=== PATIENT | female | born 1940 | race Caucasian/White ===

== ENCOUNTER 2016-11-27 15:20 | Emergency (ER) | payer OTHER ==
--- NOTE | ~2016-11-27 | EKG ---
PATIENT: VIKRAM KENDRICK UNIT #: [id number] Ventricular Rate: 69 BPM Atrial Rate: 69 BPM P-R Interval: 206 ms QRS Duration: 136 ms Q-T Interval: 484 ms QTC Calculation(Bezet): 518 ms P Graford: 81 degrees Calculated R Graford: -33 degrees Calculated T Graford: 22 degrees Diagnosis Line: Normal sinus rhythm Diagnosis Line: Left axis deviation Diagnosis Line: Right bundle branch block Diagnosis Line: Abnormal ECG Diagnosis Line: When compared with ECG of 17-JUL-2016 19:21, Diagnosis Line: No significant change was found Diagnosis Line: Confirmed by RICKIE BERGERON MD ([id number]) on 11/28/2016 Diagnosis Line: 7:27:42 PM INTERPRETING MD: ELYSSA FERNANDEZ
--- NOTE | ~2016-11-27 | CR133 ---
[facility] A Service of [facility] RADIOLOGY TEXT RESULTS PATIENT: VIKRAM KENDRICK LOCATION: [place] : 39 UNIT #: [id number] AGE: [address]: Ady Hoskins MD SEX: F ORDER DR: [id number] [facility] [address] [place], [place] [address] [id number] E MR#: [id number] Acc #: [id number] NAME: VIKRAM KENDRICK : 1940 SEX: F STUDY DATE/TIME: 11/27/2016 14:48 UNIT: [place] ROOM: STUDY DESCRIPTION: CR Forearm 2 View Rt Attending Physician: Ady Hoskins M.D. Ordering Physician: Ady Hoskins M.D. Primary Care Physician: Luca Luna M.D. MEDICAL IMAGING REPORT This report is preliminary unless electronic signature is present EXAM Right forearm series. DATE OF EXAM 11/27/2016 HISTORY Pain. Fell today. FINDINGS AP, and lateral views of the right forearm are presented. Diminished bony mineralization. No traumatic fracture or malalignment. Elbow and wrist joints appear normally located in their visualized extent. Afyixmgv-ne-pwodxv degenerative change at the basal joint of the thumb. Prominent soft tissue swelling with subcutaneous fat stranding and haziness along the distal two-thirds of the forearm more pronounced along its anterior and ulnar aspects. Appearance suggests large contusion or subcutaneous hematoma. This extends over a longitudinal distance of about 17 cm with soft tissue swelling along the anterior aspect of the wrist and probably extending into the anterior hand as well. On the lateral view, there is a suggestion of cutaneous irregularity at the junction of middle and distal thirds of the forearm extending over a distance of about 2 cm and concerning for cutaneous laceration. Please correlate with clinical examination. There is some overlying bandage material. The proposed laceration could be an artifact related to banding material. No subcutaneous radiodense foreign body is suggested. Dictated by... [facility] A Service of [facility] RADIOLOGY TEXT RESULTS PATIENT: VIKRAM KENDRICK LOCATION: [place] : 39 UNIT #: [id number] AGE: [address]: Ady Hoskins MD SEX: F ORDER DR: Saleem Boyd M.D. THIS IS AN ELECTRONICALLY VERIFIED REPORT Saleem Boyd M.D. at 11/28/2016 7:55 AM Bernard TD: 11/27/2016 16:39 JOB #: [id number] MEDICAL IMAGING REPORT COPY
--- NOTE | ~2016-11-27 | CR282 ---
[facility] A Service of [facility] RADIOLOGY TEXT RESULTS PATIENT: VIKRAM KENDRICK LOCATION: [facility] : 39 UNIT #: [id number] AGE: [address]: Ady Hoskins MD SEX: F ORDER DR: [id number] [facility] [address] [place], [place] [address] [id number] E MR#: [id number] Acc #: [id number] NAME: VIKRAM KENDRICK : 1940 SEX: F STUDY DATE/TIME: 11/27/2016 14:50 UNIT: [facility] ROOM: STUDY DESCRIPTION: CR Wrist Min 3 View Rt Attending Physician: Ady Hoskins M.D. Ordering Physician: Ady Hoskins M.D. Primary Care Physician: Luca Luna M.D. MEDICAL IMAGING REPORT This report is preliminary unless electronic signature is present EXAM Right wrist, 11/27 HISTORY Wrist pain after fall today. FINDINGS 3 views of the right wrist were obtained. Patient is osteopenic. There is severe degenerative disease at the first carpometacarpal joint. No acute fractures are identified. Soft tissue injury suspected in the distal forearm. Correlate clinically. IMPRESSION Soft tissue injury in the distal forearm. No acute fracture in the wrist. Dictated by... Neeraj Myers Jr., M.D. THIS IS AN ELECTRONICALLY VERIFIED REPORT Neeraj Myers Jr., M.D. at 11/28/2016 8:11 AM JIN/michael TD: 11/27/2016 16:20 JOB #: [id number] MEDICAL IMAGING REPORT COPY
[2016-11-27 14:29] LABS: BASOPHIL% 0.4 % (0-2.5); DIFF IND NO; EOSINOPHIL% 0.8 % (0.0-7.0); HEMATOCRIT 31.8 % (35.0-45.0); HEMOGLOBIN 10.3 gm/dL (12.0-16.0); LYMPHOCYTE# 0.6 X10e3 (1.0-3.5); LYMPHOCYTE% 9.2 % (17.0-45.0); MEAN CELL VOLUME 90.8 FL (83-96); MEAN CORPUSCULAR HEMOGLOBIN 29.5 PG (28-34); MEAN CORPUSCULAR HGB CONC 32.5 g/dL (30-36); MEAN PLATELET VOLUME 9.1 FL (6.5-11.5); MONOCYTE# 0.5 X10e3 (0-1.0); MONOCYTE% 7.5 % (3.0-12.0); NEUTROPHIL# 5.3 X10e3 (1.5-7.1); NEUTROPHIL% 82.1 % (40-75); PLATELET COUNT 194 X10e3 (140-420); RED CELL DISTRIBUTION WIDTH 15.7 % (11.0-15.5); WHITE BLOOD COUNT 6.5 X10e3 (4.0-10.5)
[2016-11-27 14:54] LABS: INR 0.9; PARTIAL THROMBOPLASTIN TIME 27.5 SECONDS (23.5-31.3); PROTHROMBIN TIME (PATIENT) 9.7 SECONDS (9.6-11.5)
[2016-11-27 15:06] LABS: ALBUMIN SERUM 3.5 g/dL (3.5-5.0); BILIRUBIN, DIRECT 0.1 mg/dL (0.0-0.2); BILIRUBIN,INDIRECT 0.3 mg/dL (0.0-0.9); BILIRUBIN,TOTAL 0.4 mg/dL (0.2-2.0); BUN/CREATININE RATIO 16.15; CALCIUM SERUM 8.3 mg/dL (8.4-10.2); CREATININE SERUM 1.3 mg/dL (0.6-1.4); GLOM FILT RATE Estimated 42.2 mL/min (>60); POTASSIUM 3.9 mmol/L (3.5-5.1); PROTEIN TOTAL SERUM 7.1 g/dL (6.0-8.3)
[~2016-11-27 15:20] MED LIST: ACETAMINOPHEN PO; ADVIL200 M1 PO; AMIODARONE HCL100 MG PO; AMLODIPINE BESY10 MG PO; ANUSOL-HC SUPP25 MG PR; ANUSOL-HC25 MG/SUPP RC; APAP325 M2 PO; ASPIRIN EC81 M1 PO; ASPIRIN ENTERI325 M1 PO; ASPIRIN81 M2 PO; ASPIRIN81 MG PO; ATRAC-TAIN142 GM EXT; ATRAC-TAIN142 GM TP; BAYER ASPIRIN325 M1 PO; BRILINTA90 MG PO; CARAFATE PO; CARAFATE1 G PO; CARAFATE1 GM PO; CARDENE30 MG PO; CATAPRES-TTS-10.1 M1 PO; CATAPRES0.1 MG PO; CLOBETASOL 0.0560 GM; CLOBETASOL 0.0560 GM TOP; CLOBETASOL TOP; CLONIDINE HCL0.1 MG PO; CLONIDINE PO; CLOTRIMAZOLE/BE15 GM; CLOTRIMAZOLE/BE45 GM TOP; DOCUSATE SODIU100 MG PO; FERROUS GLUCON324 MG PO; FERROUS SULFATE PO; FLAGYL PO; FLEXERIL PO; HCTZ PO; HYDRALAZINE HC100 MG PO; HYDRALAZINE HCL25 MG PO; HYDRALAZINE HCL50 MG PO; HYDROCODON-ACE1 EAC5 PO; HYDROCODON-ACE1 EAC7 PO; HYDROCODONE-A1 UDTA3 PO; HYDROCODONE-APA1 T56 PO; IMDUR-ER30 M1 PO; IRON PO; IRON TABLET1 EACH PO; IRON325 ( 652 PO; K-DUR20 ME1 PO; LAXATIVE5 M1; LEVAQUIN PO; LEVAQUIN750 M1 PO; LIPITOR20 MG PO; LISINOPRIL PO; LO-DOSE ASPIRIN81 M1 PO; LOPRESSOR PO; LOPRESSOR100 MG PO; LORTAB 7.5-3251 EACH PO; LOVENOX30 MG/0.3 INJ; MAXZIDE 75/50 T1 TA1; MAXZIDE 75/50 T1 TA1 PO; MAXZIDE 75/50 T1 TAB PO; METOPROLOL SUC100 MG PO; METOPROLOL SUC200 MG PO; METOPROLOL TAR100 MG PO; METOPROLOL TART25 MG PO; MIRALAX17 GM PO; MULTI VITAMIN1 EACH PO; MULTI-VITAMIN1 EAC1 PO; MULTI-VITAMIN1 TAB PO; MULTIPLE VITAMI1 T11 PO; MUPIROCIN TOP; NEXIUM PO; NITROGLYGERIN0.4 MG SL; NORCO 10-325 TA1 TAB PO; NORCO 5/325 TAB1 TAB PO; NORVASC PO; NORVASC10 MG PO; PANTOPRAZOLE SO40 MG PO; PHARMACY; PROTONIX; PROTONIX PO; SANTYL15 G1 TOP; SKELAXIN PO; SUCRALFATE1 G/10 ML PO; THERA M PLUS1 UDTA1 PO; THERAGRAN-M 1,21 CAP PO; THERAGRAN-M AD1 EACH PO; THERAGRAN1 TAB PO; TOPROL XL PO; TYLENOL325 M1 PO; TYLOX 5/500 CAP1 CAP PO; VICODIN 5/1 TAB 5/50 PO; VICODIN 5/500 T1 TAB PO; VICODIN PO
== END 2016-11-27 16:50 | disposition home or self-care (01) ==
LOC: CED 15:20
PROVIDERS: Emergency Medicine
DX: S51.811A Laceration without foreign body of right forearm, initial encounter (principal); N18.9 Chronic kidney disease, unspecified; D63.1 Anemia in chronic kidney disease; W01.0XXA Fall on same level from slipping, tripping and stumbling without subsequent striking against object, initial encounter; Y92.009 Unspecified place in unspecified non-institutional (private) residence as the place of occurrence of the external cause
CPT/HCPCS: 29260; 36415; 73090; 73110; 80048; 80076; 85025; 85610; 85730; 93005; 99284

== ENCOUNTER 2016-12-08 14:52 | Emergency (ER) | payer OTHER ==
--- NOTE | ~2016-12-08 | EKG ---
PATIENT: VIKRAM KENDRICK UNIT #: [id number] Ventricular Rate: 74 BPM Atrial Rate: 74 BPM P-R Interval: 190 ms QRS Duration: 142 ms Q-T Interval: 454 ms QTC Calculation(Bezet): 503 ms P Formoso: 34 degrees Calculated R Formoso: -27 degrees Calculated T Formoso: -46 degrees Diagnosis Line: Sinus rhythm with occasional Premature ventricular Diagnosis Line: complexes Diagnosis Line: Right bundle branch block Diagnosis Line: T wave abnormality, consider lateral ischemia Diagnosis Line: Abnormal ECG Diagnosis Line: When compared with ECG of 27-NOV-2016 14:13, Diagnosis Line: Premature ventricular complexes are now Present Diagnosis Line: T wave inversion now evident in Inferior leads Diagnosis Line: Confirmed by LAMONT MARI MD ([id number]) on Diagnosis Line: 12/10/2016 12:04:30 AM INTERPRETING MD: JACEY FERNANDEZ
--- NOTE | ~2016-12-08 | CT4 ---
[facility] A Service of [facility] RADIOLOGY TEXT RESULTS PATIENT: VIKRAM KENDRICK LOCATION: [facility] : 39 UNIT #: [id number] AGE: [address]: Phil Peralta DO SEX: F ORDER DR: [id number] [facility] [address] [place], [place] [address] [id number] E MR#: [id number] Acc #: [id number] NAME: VIKRAM KENDRICK : 1940 SEX: F STUDY DATE/TIME: 12/08/2016 15:45 UNIT: [facility] ROOM: STUDY DESCRIPTION: CT Abd and Pelv Wo Cont Attending Physician: Phil Peralta D.O. Ordering Physician: Phil Peralta D.O. Primary Care Physician: Luca Luna M.D. MEDICAL IMAGING REPORT This report is preliminary unless electronic signature is present EXAM CT abdomen and pelvis without contrast. INDICATIONS Generalized abdominal and periumbilical pain today. PROCEDURE Unenhanced CT of the abdomen and pelvis. This CT exam was performed with one or more of the following radiation dose reduction techniques: automatic exposure control, adjustment of mA and/or kV according to patient size, and iterative reconstruction. COMPARISON 07/26/2016. FINDINGS Abdomen without contrast: Small amount of atelectasis in the left lung base around the patient's hiatal hernia. Cardiomegaly. There is a large hiatal hernia. Elevated right hemidiaphragm. Liver, spleen, adrenal glands, pancreas and gallbladder unremarkable. PLAN 1. The bowel loops are nondilated. 2. Bilateral renal cysts, largest is exophytic from the upper pole of the left kidney and measures up to 3.57 cm. There are multiple nonobstructing calculi in the left kidney measuring up to 9 mm. A 1.3 cm high-attenuation lesion in the anterior left kidney is stable and most in keeping with a benign proteinaceous or hemorrhagic cyst. No radiodense ureteral calculus or hydronephrosis when allowing for [facility] A Service of [facility] RADIOLOGY TEXT RESULTS PATIENT: VIKRAM KENDRICK LOCATION: [facility] : 39 UNIT #: [id number] AGE: [address]: Phil Peralta DO SEX: F ORDER DR: streak artifact from the patient's left hip prosthesis. 3. Pelvis without contrast. No radiodense bladder calculus. No pelvic mass. No aggressive appearing bone lesion. 4. No clearly acute finding in the abdomen or pelvis. 5. Multiple incidental findings as detailed above and include large hiatal hernia, cardiomegaly, nonobstructing calculi in the left kidney and bilateral renal cysts. Dictated by... Lg Walker M.D. THIS IS AN ELECTRONICALLY VERIFIED REPORT Lg Walker M.D. at 12/11/2016 7:01 AM JOYCE/javier TD: 12/09/2016 07:55 JOB #: [id number] MEDICAL IMAGING REPORT COPY
[2016-12-08 14:22] LABS: POC - CKMB 2.2 ng/mL (0.0-7.9); POC - TROPONIN <0.05 ng/mL (<=0.05)
[2016-12-08 14:42] LABS: BASOPHIL% 0.4 % (0-2.5); EOSINOPHIL% 0.4 % (0.0-7.0); HEMATOCRIT 29.5 % (35.0-45.0); HEMOGLOBIN 9.6 gm/dL (12.0-16.0); LYMPHOCYTE# 0.4 X10e3 (1.0-3.5); LYMPHOCYTE% 6.3 % (17.0-45.0); MEAN CELL VOLUME 90.7 FL (83-96); MEAN CORPUSCULAR HEMOGLOBIN 29.4 PG (28-34); MEAN CORPUSCULAR HGB CONC 32.4 g/dL (30-36); MEAN PLATELET VOLUME 9.5 FL (6.5-11.5); MONOCYTE# 0.5 X10e3 (0-1.0); MONOCYTE% 6.8 % (3.0-12.0); NEUTROPHIL# 5.9 X10e3 (1.5-7.1); NEUTROPHIL% 86.1 % (40-75); PLATELET COUNT 197 X10e3 (140-420); RED BLOOD COUNT 3.26 X10e (3.90-5.30); RED CELL DISTRIBUTION WIDTH 16.2 % (11.0-15.5); WHITE BLOOD COUNT 6.9 X10e3 (4.0-10.5)
[2016-12-08 14:53] LABS: DIFF IND NO
[2016-12-08 15:02] LABS: ALBUMIN SERUM 3.6 g/dL (3.5-5.0); BILIRUBIN, DIRECT 0.1 mg/dL (0.0-0.2); BILIRUBIN,INDIRECT 0.6 mg/dL (0.0-0.9); BILIRUBIN,TOTAL 0.7 mg/dL (0.2-2.0); CALCIUM SERUM 8.3 mg/dL (8.4-10.2); CREATININE SERUM 1.6 mg/dL (0.6-1.4); GLOM FILT RATE Estimated 33.2 mL/min (>60); POTASSIUM 4.1 mmol/L (3.5-5.1); PROTEIN TOTAL SERUM 7.2 g/dL (6.0-8.3)
[2016-12-08 15:06] LABS: INR 0.9; PARTIAL THROMBOPLASTIN TIME 28.5 SECONDS (23.5-31.3); PROTHROMBIN TIME (PATIENT) 9.8 SECONDS (9.6-11.5)
[2016-12-08 16:00] LABS: POC - CKMB 1.5 ng/mL (0.0-7.9); POC - TROPONIN <0.05 ng/mL (<=0.05)
== END 2016-12-08 20:00 | disposition home or self-care (01) ==
LOC: CED 14:52
PROVIDERS: Emergency Medicine
DX: I10 Essential (primary) hypertension (principal); I73.9 Peripheral vascular disease, unspecified; D64.9 Anemia, unspecified; Z98.890 Other specified postprocedural states; Z88.0 Allergy status to penicillin; Z88.8 Allergy status to other drugs, medicaments and biological substances; Z79.899 Other long term (current) drug therapy
CPT/HCPCS: 36415; 74176; 80048; 80076; 82553; 83690; 84484; 85025; 85610; 85730; 86850; 86900; 86901; 93005; 96361; 96372; 96374; 99284; C9113; J0500

== ENCOUNTER 2016-12-30 10:21 | Inpatient (IN) | payer OTHER ==
--- NOTE | ~2016-12-30 | DS ---
Unit #: [id number] #: [id number] Patient: VIKRAM KENDRICK [id number] [address] [place], [place] [address] [id number] I MR#: [id number] NAME: VIKRAM KENDRICK ROOM: 579 Age: 76 Sex: F Admission Date: 12/30/2016 : 1940 Discharge Date: 01/04/2017 Attending Physician: Azalia Espinoza M.D. Primary Care Physician: Luca Luna M.D. DISCHARGE SUMMARY PRINCIPAL DISCHARGE DIAGNOSES 1. Atypical chest pain with negative Cardiolite. 2. Acute on chronic anemia with stool for occult blood negative x1 while here. 3. Hypertension. 4. Sinus bradycardia. 5. Chronic kidney disease stage 3. 6. Right wrist hematoma. 7. Methicillin-resistant Staphylococcus aureus right lower extremity ulcer. 8. History of coronary artery disease. 9. Hiatal hernia. 10. Kyphoscoliosis. 11. Chronic venous insufficiency. 12. Status post left hip endoprosthesis. 13. Sick sinus syndrome. PROCEDURES None. CONSULTANTS 1. Dr. Gillette, Orthopedics. 2. Dr. Roldan, Hematology. 3. Dr. Poon, [facility]. 4. Dr. Worthington, Cardiology. REASON FOR HOSPITALIZATION The patient is a 76-year-old white female with a history of hypertension, coronary artery disease, hiatal hernia, chronic kidney disease stage 3, and chronic anemia, admitted through the emergency room with less than 24 hours of substernal chest pain worse with exertion, somewhat pleuritic, fairly constant. Cardiac enzymes and EKG showed no significant changes and were nondiagnostic, and the patient was admitted. HOSPITAL COURSE The patient was admitted. Again, her cardiac enzymes were normal x5 sets. CBC was normal except for a hemoglobin of 9.5. CMP was normal except for a potassium of 3.4, GFR of 54, alkaline phosphatase of 166, and albumin of 3.3. EKG showed sinus bradycardia, sinus arrhythmia, right bundle branch block, and no change. Thyroid functions were within normal limits. Chest x-ray showed no active disease, and again, the patient was admitted. Cardiology was consulted. Lexiscan Cardiolite was negative without any ST segment changes. There was no obvious ischemia on nuclear images. There Unit #: [id number] #: [id number] Patient: VIKRAM KENDRICK was preserved ejection fraction. Bilateral lower extremity venous Doppler showed a cyst in the left popliteal fossa. This was a sebaceous cyst, but there was no evidence of deep vein thrombosis. Hemoglobin drifted down. [facility] was consulted for possible endoscopy but declined. She had come in with an ulcer on her right lower extremity. Wound culture grew MRSA. She was originally placed on vancomycin, but there was no evidence that it was actively infected, and it was switched to Bactroban. Ferritin was low normal at 13. Iron was low. TIBC was normal. B12 and folic acid were normal. Stool for occult blood was negative and reticulocyte count 2.0%. Patient was noted to have some swelling on her right wrist. A two-view x-ray showed no fracture. Orthopedics was consulted. An MRI was performed, and it was consistent with a hematoma from a previous injury. Haptoglobin was 154 within normal limits. Epogen level was 90.4 which is actually elevated. Hematology was consulted for the anemia and recommended Procrit injections 40,000 units weekly subcutaneous. The first dose was given while here. Hemoglobin went up to 9.6. Patient is stable and is being discharged home. DISCHARGE MEDICATIONS 1. She is to resume her home medications which include Cordarone 100 mg p.o. daily, Norvasc 5 mg p.o. daily, Lipitor 20 mg p.o. at bedtime, clonidine 0.2 mg b.i.d., Carafate 1 gram twice daily, hydrocodone/APAP 5/325 at 1 t.i.d. p.r.n., Protonix 40 mg daily, and Imdur-ER 30 mg daily. 2. She has been given a prescription for Bactroban ointment to apply to the ulcer 3 times daily and a prescription for hydralazine 50 mg b.i.d. She was originally on Lopressor when she came in, but this was discontinued secondary to sinus bradycardia. 3. She is to go to Dr. Roldan's office weekly to get injections of Procrit 40,000 units subcutaneous on . FOLLOWUP With me in one week. DIET Regular diet as tolerated. Dictated by... Luca Luna M.D. Erica TD: 01/06/2017 18:15 JOB #: [id number] Unit #: [id number] #: [id number] Patient: VIKRAM KENDRICK DISCHARGE SUMMARY Page 1 of 1 X Luca Luna MD X DISCHARGE SUMMARY
--- NOTE | ~2016-12-30 | CO ---
Unit #: [id number] #: [id number] Patient: VIKRAM ZEPEDA [id number] [address] [place], [place] [address] [id number] I MR#: [id number] NAME: VIKRAM ZEPEDA ROOM: 579 Age: 76 Sex: F Admission Date: 12/30/2016 : 1940 Attending Physician: Azalia Espinoza M.D. Primary Care Physician: Luca Luna M.D. Requesting Physician: Neeraj Poon M.D. Consultation Date: 01/02/2017 CONSULTATION REPORT REASON FOR CONSULTATION Severe normocytic anemia. Please evaluate. HISTORY OF PRESENT ILLNESS Ms. Vikram Zepeda is 76 years old with a history of hypertension, coronary artery disease, stage 3 chronic kidney disease and chronic anemia admitted with substernal chest pain to the emergency room on 12/30/2016. Following admission, Surgical consultation was obtained because of severe anemia and the need for endoscopy. She has had multiple prior admissions and transfusions in the past with the most recent admission in January of 2016 when she required a multi-unit transfusion of packed cells. She has a functional gastric outlet obstruction with gastropexy and gastrostomy tube placement with at least 15 units of packed cells transfused from 2014. She tells me she has no ice craving or any other pica but feels constantly fatigued. PAST MEDICAL HISTORY History of coronary artery disease, hypertension, chronic kidney disease stage 3, kyphoscoliosis, chronic venous insufficiency. PAST SURGICAL HISTORY Laparoscopic gastropexy with gastrostomy, left hip endoprosthesis. SOCIAL HISTORY She is single, lives with herself. A neighbor takes her to doctors appointment. She has no living children or any other family members. FAMILY HISTORY Negative for anemia. REVIEW OF SYSTEMS A 14-point review of system taken. CONSTITUTIONAL: No recent change in appetite and weight. Chronic fatigue. EYES: Negative. EARS, NOSE, MOUTH AND THROAT: Negative. CARDIOVASCULAR: Chest pain on admission. GASTROINTESTINAL: Negative. GENITOURINARY: Negative. NEUROLOGIC: Negative. MUSCULOSKELETAL: Kyphoscoliosis. ENDOCRINE: Negative. ALLERGY/LYMPHATIC: Negative. SKIN: Breakdown in skin of right foot. She also fell several weeks ago Unit #: [id number] #: [id number] Patient: VIKRAM ZEPEDA and has a lump in her right forearm. PHYSICAL EXAMINATION GENERAL APPEARANCE: She is a pleasant, elderly woman lying in bed in no acute distress, awake, alert, oriented x3. VITAL SIGNS: Temperature 97.5. Pulse 51. Respiratory rate 18. Blood pressure 170/93. HEENT: Pupils are equal, reactive to light. She is pale but not icteric. Mucous membranes are moist. NECK: No adenopathy, JVD or thyromegaly. CARDIOVASCULAR: First and second heart sounds regular with no murmurs, gallops or rubs. LUNGS: Chest expansion symmetric bilaterally with normal breath sounds. ABDOMEN: Soft, nontender. Liver and spleen not palpable. EXTREMITIES: She has a palpable mass in the left forearm proximal to the wrist which appears to have the consistency of a ganglion, although not mobile. Skin of the right leg as well as ankle is red. Cultures have been drawn for MRSA. Foot pulses are felt. NEUROLOGIC: She is awake, alert, oriented x2 with no focal findings. PSYCHIATRIC: Normal affect. DIAGNOSTIC STUDIES LABORATORY: White count 4.7, hemoglobin 8.7, hematocrit 27.2, RDW 15.4, platelets 201. TSH 0.92. Basic metabolic panel shows a BUN of 26. Creatinine is 1.4 with an EGFR of 36.1. Ferritin 13, iron 20, TIBC 430 with a percent saturation of 5. Folic acid 19.6, B12 256. IMAGING: X-ray, right wrist two views, anterior aspect there is soft tissue swelling 5 cm x 2 cm. ASSESSMENT Vikram Zepeda is 76 years old with multiple complex medical problems including coronary artery disease, hypertension, chronic kidney stage 3 admitted with chest pain, which has now resolved. She is also chronically anemic with a history of gastropexy and functional gastric outlet obstruction. Iron studies consistent with iron deficiency likely with iron malabsorption given her previous gastric surgery. She also has significant chronic kidney disease noncontributory. RECOMMENDATIONS 1. Ferrlecit 250 mg IV daily for three days. 2. We will need to consider Procrit and other replacement therapy after replenishment of iron stores. 3. Orthopaedic consultation for her ganglion of right wrist. Thank you for allowing me to participate in care. Dictated by... Alan Roldan M.D. Abimbola TD: 01/02/2017 14:15 JOB #: [id number] Unit #: [id number] #: [id number] Patient: VIKRAM ZEPEDA CONSULTATION REPORT Page 1 of 1 X Alan Roldan MD CONSULTATION REPORT
--- NOTE | ~2016-12-30 | CO ---
Unit #: [id number] #: [id number] Patient: VIKRAM KENDRICK [id number] [facility] [address] [place], [place] [address] [id number] I MR#: [id number] NAME: VIKRAM KENDRICK ROOM: 579 Age: 76 Sex: F Admission Date: 12/30/2016 : 1940 Attending Physician: Azalia Espinoza M.D. Primary Care Physician: Luca Luna M.D. Consultation Date: 12/30/2016 CONSULTATION REPORT REASON FOR CONSULTATION Chest pain. HISTORY OF PRESENT ILLNESS The patient is a 76-year-old female, who does not regularly follow up in the rfid technician's office. She used to see [facility] and saw Dr. Alegre. However, last year, she was seen by us here at [facility] and had an abnormal stress test and underwent coronary angiography receiving a drug-eluting stent to the OM branch by Dr. Dillon. The patient was started on aspirin and Brilinta. She did have a GI bleed and this medication was stopped. All other coronary arteries were normal and she had normal LV function. The patient comes to the hospital today after waking up suddenly this morning with a pounding sensation in her chest. She states that it lasted for about an hour and then went away on its own. She was also short of breath. She has not had any exertional symptoms. No orthopnea. No lower extremity edema. PAST MEDICAL HISTORY Coronary artery disease, drug-eluting stent to the OM in 11/2015, all other coronaries were normal at that time, normal LV function; GI bleed; peptic ulcer disease; hiatal hernia, status post hernia repair; questionable history of sick sinus syndrome on last hospital admission in 01/2016. SOCIAL HISTORY The patient does not smoke. No alcohol or drug abuse. FAMILY HISTORY Noncontributory. DIAGNOSTIC STUDIES CARDIOVASCULAR STUDIES: EKG shows sinus katherine with a right bundle-branch block. LABORATORY RESULTS: White blood cell count 5.7, hemoglobin 9.5, hematocrit 30.2, and platelet count 211. Sodium 142, potassium 3.4, chloride 108, CO2 of 25, BUN 20, creatinine 1.0, and glucose 102. ALLERGIES Penicillin and sodium ferrous gluconate complex. Unit #: [id number] #: [id number] Patient: VIKRAM KENDRICK HOME MEDICATIONS I believer are as follows; aspirin 81 mg daily, amiodarone 100 mg b.i.d., Imdur ER 30 mg daily, Norvasc 5 mg daily, Lipitor 20 mg at bedtime, clonidine 0.2 mg b.i.d., Lortab 5/325 p.o. t.i.d. for pain. The patient does not know an accurate med list and this was used from a prior admission. REVIEW OF SYSTEMS Complains of heart pounding. No fever, chills, cough, nausea, vomiting, diarrhea, dizziness, lightheadedness, headache, or changes in visual field. Also some associated shortness of breath. No diaphoresis. All other review of systems is negative. PHYSICAL EXAMINATION GENERAL: The patient is awake and alert, in no apparent distress. Color is pink. SKIN: Warm and dry. VITAL SIGNS: Afebrile, heart rate 99, blood pressure 145/79. HEENT: Normal carotid upstrokes. No auscultated bruit. Negative JVD, lying supine. Negative hepatojugular reflux. CHEST: Respirations are regular, unlabored at rest. Bilateral breath sounds. Have no crackles, rubs, or wheezes. HEART: S1 and S2. Regular rate and rhythm. 2/6 systolic ejection murmur heard loudest at the left sternal border. No radiation. No rubs or gallops are heard. ABDOMEN: Soft, nontender, and nondistended. Positive bowel sounds in all 4 quadrants. No ascites noted. EXTREMITIES: Bilateral lower extremities have no pretibial pitting edema. DP/PT pulses are 2+. EXTREMITIES: Bilateral lower extremities have no pretibial pitting edema. MUSCULOSKELETAL: Moves all extremities without difficulty. NEUROLOGIC: No focal motor or sensory deficits. IMPRESSION 1. History of coronary artery disease with drug-eluting stent to the obtuse marginal in 11/2015. 2. Atypical chest pain. 3. Palpitations/heart pounding. 4. Systolic murmur most likely aortic stenosis. 5. Hypertension. 6. Prolonged QT interval on the EKG in 01/2016. PLAN We will hold amiodarone due to QT interval prolongation. We will check serial cardiac enzymes to rule out for DE. We will check a 2D echo to assess valvular heart disease. Her home blood pressure medicines have been restarted. We will start on low-dose beta-ijeoma in the setting of CAD and hypertension. If cardiac enzymes are negative, we will plan for Lexiscan Cardiolite in the morning. Dictated by... Catia Wray APRN for Augustin Tellez/cayden TD: 12/31/2016 08:00 JOB #: [id number] Unit #: [id number] #: [id number] Patient: VIKRAM KENDRICK CONSULTATION REPORT Page 1 of 1 X X CONSULTATION REPORT
--- NOTE | ~2016-12-30 | ST ---
Unit #: [id number] #: [id number] Patient: VIKRAM KENDRICK [id number] [address] [place] [facility] [address] [place], [place] [address] [id number] I MR#: [id number] NAME: VIKRAM KENDRICK : 1940 SEX: F STUDY DATE/TIME: 12/31/2016 UNIT: [facility] ROOM: 579 STUDY DESCRIPTION: Attending Physician: Azalia Espinoza M.D. Primary Care Physician: Luca Luna M.D. CARDIOLOGY REPORT EXAM EKG portion of Lexiscan Cardiolite. REASON FOR TEST Chest pain. FINDINGS Baseline EKG shows normal sinus rhythm, rate of 61 beats per minute, right bundle branch block, nonspecific ST-T wave abnormalities noted. PROCEDURE Next, 0.4 mg of Lexiscan was injected per protocol followed by Cardiolite. During the infusion, the patient complained of shortness of breath and nausea. However, denied any complaints of chest pain. There were no ST segment changes noted suggestive of ischemia. There was no ectopy. The test was stopped secondary to protocol completion. IMPRESSION 1. Negative EKG portion of Lexiscan Cardiolite. 2. No ST segment changes suggestive of ischemia. 3. Patient had shortness of breath and nausea during the infusion but no complaints of chest pain. Her symptoms resolved in the recovery period. 4. No arrhythmias. 5. Please correlate with nuclear imaging. Dictated by... Aimee Quick A.P.R.N. for Augustin Montero/denny TD: 12/31/2016 12:36 JOB #: [id number] Unit #: [id number] #: [id number] Patient: VIKRAM KENDRICK CARDIOLOGY REPORT Page 1 of 1 X Aimee Quick APRN CARDIOLOGY REPORT
--- NOTE | ~2016-12-30 | EKG ---
PATIENT: VIKRAM KENDRICK UNIT #: [id number] Ventricular Rate: 58 BPM Atrial Rate: 58 BPM P-R Interval: 208 ms QRS Duration: 150 ms Q-T Interval: 508 ms QTC Calculation(Bezet): 498 ms P Graham: 15 degrees Calculated R Graham: 8 degrees Calculated T Graham: 4 degrees Diagnosis Line: Sinus bradycardia Diagnosis Line: Right bundle branch block Diagnosis Line: Abnormal ECG Diagnosis Line: When compared with ECG of 30-DEC-2016 13:15, Diagnosis Line: Nonspecific T wave abnormality, worse in Anterior Diagnosis Line: leads Diagnosis Line: Confirmed by RICKIE BERGERON MD ([id number]) on 01/01/2017 Diagnosis Line: 11:10:44 PM INTERPRETING MD: ELYSSA FERNANDEZ
--- NOTE | ~2016-12-30 | CR72 ---
[facility] A Service of [facility] & [facility] RADIOLOGY TEXT RESULTS PATIENT: VIKRAM KENDRICK LOCATION: [facility] 579-01 : 39 UNIT #: [id number] AGE: [address]: Azalia Espinoza MD SEX: F ORDER DR: [id number] [facility] [address] [place], [place] [address] [id number] I MR#: [id number] Acc #: [id number] NAME: VIKRAM KENDRICK : 1940 SEX: F STUDY DATE/TIME: 12/30/2016 10:26 UNIT: [facility] ROOM: [id number] STUDY DESCRIPTION: CR Chest Single View Portable Attending Physician: Azalia Espinoza M.D. Ordering Physician: Cornelio Marcelo M.D. Primary Care Physician: Luca Luna M.D. MEDICAL IMAGING REPORT This report is preliminary unless electronic signature is present EXAM Single view chest. INDICATION Chest pain, shortness of air, and congestion for 1 day. TECHNIQUE Single, portable, AP view of the chest compared to 07/17/2016. FINDINGS The heart is enlarged. There is a hiatal hernia. No focal airspace opacity. No pleural effusions. IMPRESSION No interval change. Dictated by... Jacques Gabriel M.D. THIS IS AN ELECTRONICALLY VERIFIED REPORT Jacques Gabriel M.D. at 12/31/2016 2:11 PM JENNIFER/shraddha TD: 12/30/2016 18:18 JOB #: [id number] MEDICAL IMAGING REPORT Page 1 of 1 COPY
--- NOTE | ~2016-12-30 | CO ---
Unit #: [id number] #: [id number] Patient: VIKRAM KENDRICK [id number] [address] [place], [place] [address] [id number] I MR#: [id number] NAME: VIKRAM KENDRICK ROOM: 579 Age: 76 Sex: F Admission Date: 12/30/2016 : 1940 Attending Physician: Azalia Espinoza M.D. Primary Care Physician: Luca Luna M.D. Consultation Date: 01/02/2017 CONSULTATION REPORT CHIEF COMPLAINT Right forearm mass. HISTORY OF PRESENT ILLNESS This 76-year-old female is admitted for evaluation of chest pain. Consultation is requested for evaluation of volar right wrist mass. The patient states that she fell six weeks ago, sustaining a volar forearm laceration in her distal third of the forearm. She was seen in the emergency room where radiographs were normal. She was treated nonoperatively and then developed a 3 x 6 cm volar forearm mass, which is nontender. The patient denies any numbness or weakness in the right arm. This was thought to be a suspected ganglion. PAST MEDICAL HISTORY Remarkable for hypertension, coronary artery disease, hiatal hernia, chronic kidney disease stage 3, kyphoscoliosis, peptic ulcer disease, chronic venous insufficiency, chronic anemia, sick sinus syndrome. PAST SURGICAL HISTORY Laparoscopic gastropexy with gastrostomy and eventual removal of gastrostomy tubes, left hip endoprosthesis. HOME MEDICATIONS Amiodarone, Imdur ER, Norvasc, Lipitor, clonidine, Carafate, multivitamins, [place], Protonix, and Nitrostat. SOCIAL HISTORY The patient is a , nonsmoker and nondrinker who lives alone. FAMILY HISTORY Noncontributory. PHYSICAL EXAMINATION Examination of the right arm shows a 3 x 6 cm solid soft tissue mass located about 6 cm proximal to the wrist flexion crease. There is no motion of the mass with flexion and extension of the fingers. Pulses are intact. Sensation is normal. Patient exhibits normal volar wrist flexion strength and finger flexion strength. The mass is nonpulsatile. Past right forearm and x-rays are normal. IMPRESSION Right volar forearm mass six weeks following sharp trauma, suspect lacerated muscle with scarring, doubt ganglion. Unit #: [id number] #: [id number] Patient: VIKRAM KENDRICK PLAN 1. Right wrist and forearm MRI. 2. Will follow during this admission. Dictated byAugustin Woodward/ahmet TD: 01/03/2017 06:01 JOB #: [id number] CONSULTATION REPORT Page 1 of 1 X Stella Gillette MD X CONSULTATION REPORT
--- NOTE | ~2016-12-30 | US84 ---
[id number] [facility] [address] [place], [place] [address] [id number] I MR#: [id number] Acc #: [id number] NAME: VIKRAM KENDRICK : 1940 SEX: F STUDY DATE/TIME: 12/31/2016 12:48 UNIT: [facility] ROOM: 579 STUDY DESCRIPTION: US LE Veins Complete Dylan Stdy Attending Physician: Azalia Espinoza M.D. Ordering Physician: Luca Luna M.D. Primary Care Physician: Luca Luna M.D. MEDICAL IMAGING REPORT This report is preliminary unless electronic signature is present EXAM Bilateral lower extremity venous Doppler INDICATION Swelling at nighttime for 4 or 5 years. TECHNIQUE Gee-scale color Doppler and spectral Doppler waveform analysis was performed through the patient's lower extremities. FINDINGS The patient's common femoral, deep femoral, superficial femoral, popliteal, anterior tibial, posterior tibial, peroneal and saphenous veins are all patent and compressible. Patient is again noted to have a hypoechoic heterogeneous structure within the popliteal fossa. No internal color Doppler flow is seen within it. There may be some increased through transmission. It measures up to 2.0 x 1.2 x 1.9 cm. This was also present on the prior exam from May of 2015. Morphologically it does not appear significantly changed and it certainly could reflect a benign lesion such as a Adair's cyst. IMPRESSION. 1. No evidence of DVT within either lower extremity. 2. Hypoechoic structure which is seen within the popliteal fossa measuring up to 2.0 x 1.2 x 1.9 cm. This was also present on the prior study from May 2015. It does not appear significantly changed and is favored to be benign, such as a Adair's cyst or perhaps a sebaceous cyst given the appearance of a potential tail arising from it on the prior exam. Dictated by... Linda Lucia M.D. THIS IS AN ELECTRONICALLY VERIFIED REPORT Linda Lucia M.D. at 12/31/2016 4:34 PM AFF/cmthuy TD: 12/31/2016 14:55 JOB #: [id number] MEDICAL IMAGING REPORT Page 1 of 1 COPY
--- NOTE | ~2016-12-30 | EKG ---
PATIENT: VIKRAM KENDRICK UNIT #: [id number] Ventricular Rate: 74 BPM Atrial Rate: 74 BPM P-R Interval: 186 ms QRS Duration: 136 ms Q-T Interval: 462 ms QTC Calculation(Bezet): 512 ms P Smyer: 118 degrees Calculated R Smyer: -23 degrees Calculated T Smyer: -11 degrees Diagnosis Line: Normal sinus rhythm with sinus arrhythmia Diagnosis Line: Right bundle branch block Diagnosis Line: Abnormal ECG Diagnosis Line: When compared with ECG of 08-DEC-2016 19:10, Diagnosis Line: Premature ventricular complexes are no longer Diagnosis Line: Present Diagnosis Line: T wave inversion no longer evident in Diagnosis Line: Anterolateral leads Diagnosis Line: Confirmed by RICKIE BERGERON MD ([id number]) on 01/01/2017 Diagnosis Line: 10:57:03 PM INTERPRETING MD: ELYSSA FERNANDEZ
--- NOTE | ~2016-12-30 | CO ---
Unit #: [id number] #: [id number] Patient: VIKRAM ZEPEDA [id number] [address] [place], [place] [address] [id number] I MR#: [id number] NAME: VIKRAM ZEPEDA ROOM: 579 Age: 76 Sex: F Admission Date: 12/30/2016 : 1940 Attending Physician: Azalia Espinoza M.D. Primary Care Physician: Luca Luna M.D. Consultation Date: 01/01/2017 CONSULTATION REPORT HISTORY AND EXAM Ms. Zepeda is a 76-year-old female who has been seen frequently for a variety of abdominal issues as well as chronic recurrent anemia. She was admitted this time with chest pain and evaluated and it was felt not to be cardiac in origin. She describes the pain as constant and sharp, not associated with eating or heartburn even though she does have a history of reflux. It is worsened by movement and by direct pressure. She has not been having any trouble eating. A matter of fact the patient states she has been putting on weight and weighs the most she has ever weighed. She was noted to have some anemia. In the past she has had peptic ulcer disease and iron deficiency anemia. She is not currently taking iron and her last iron studies were in January of 2016 and at that time they were low. I cannot find a TSH or B12 and folate study. Stool today had no gross blood. She is tolerating a regular diet as she had just finished eating a hamburger and fries. Patient states she feels well, just has this chronic lower chest pain. HOME MEDICATIONS Her home medications include amiodarone, Imdur, Norvasc, Lipitor, clonidine, Carafate, multivitamins, [place], Protonix and Nitrostat. PAST MEDICAL HISTORY She has a history of: 1. Hypertension. 2. Atherosclerotic coronary artery disease. 3. Hiatal hernia. 4. Stage 3 chronic kidney disease. 5. Kyphoscoliosis. 6. Peptic ulcer disease. 7. Chronic venous insufficiency. 8. Previous left hip replacement. 9. Bilateral renal cysts. 10. Chronic anemia. 11. History of gastropexy for a chronic hiatal hernia and her G-tube has since been removed. 12. Sick sinus syndrome. ALLERGIES Penicillin, sucrose and Ferrlecit. FAMILY HISTORY She is unaware of any chronic or inheritable diseases. Unit #: [id number] #: [id number] Patient: VIKRAM ZEPEDA SOCIAL HISTORY She is a , nonsmoker, nondrinker, lives alone close to the hospital. REVIEW OF SYSTEMS Denies hematemesis, hematochezia, melena, lightheadedness, dizziness. She had significant weight gain according to her but there has been no weight loss, no dysphagia and no vomiting. PHYSICAL EXAMINATION VITAL SIGNS: On current examination temperature is 97, pulse 62, respirations 20, blood pressure is 167/81. GENERAL: She is awake, alert, oriented, in good spirits, in no acute distress. HEENT: Unremarkable. CARDIAC EXAM: Regular rhythm. LUNGS: Clear. ABDOMEN: Abdomen is soft and nontender. CHEST: On examination of her chest she has tenderness along the costochondral junction. It is reproducible and worsened by direct pressure. It simulates the pain she is complaining of. EXTREMITIES: No peripheral edema. NEUROLOGIC: Neurologically grossly intact. DIAGNOSTIC STUDIES LABORATORY: Basic metabolic panel today is normal. Magnesium is 2.2. On admission her liver chemistries were unremarkable. Hemoglobin is 8.2 with an MCV of 87, MCH 28, RDW 15.7, white count 4.1, platelets 200,000. IMAGING: CT scan done December 08 showed hiatal hernia but otherwise generally unremarkable. ASSESSMENT AND PLAN 1. Patient's persistent chest pain could be some degree of costochondritis because she has multiple sites of arthritis and this does not appear to be GI related. Cardiology has ruled out a cardiac etiology. She is eating well, having normal bowel movements and no gross evidence of blood loss. 2. Patient does have chronic anemia. Her hemoglobin has varied significantly between 8 and 11. A year ago she was noted to be iron deficient. She is not currently taking any iron supplementation and so I will repeat her iron studies as well as her B12 and folate. Because of the weight gain and anemia we will check a TSH to rule out hypothyroidism. Stool Hemoccults have been ordered. She does have a history of peptic ulcer disease. We will check her stool Hemoccults and labs and consider an EGD if there is any further indication. Her last colonoscopy was in 2016. Except for some internal hemorrhoids which were operated on was otherwise negative. If she persists with iron deficiency and anemia we may consider Hematology consult for bone marrow biopsy to look at iron stores and consideration of intravenous iron replacement. Dictated by... Unit #: [id number] #: [id number] Patient: VIKRAM ZEPEDA M.D. RS/gloria TD: 01/01/2017 19:27 JOB #: [id number] CONSULTATION REPORT Page 1 of 1 X Neeraj Poon MD X CONSULTATION REPORT
--- NOTE | ~2016-12-30 | EKG ---
PATIENT: VIKRAM KENDRICK UNIT #: [id number] Ventricular Rate: 59 BPM Atrial Rate: 59 BPM P-R Interval: 202 ms QRS Duration: 148 ms Q-T Interval: 522 ms QTC Calculation(Bezet): 516 ms P Og[place]: 78 degrees Calculated R [place]: -13 degrees Calculated T [place]: 1 degrees Diagnosis Line: Sinus bradycardia with sinus arrhythmia Diagnosis Line: Right bundle branch block with repolarization Diagnosis Line: abnormality Diagnosis Line: Abnormal ECG Diagnosis Line: When compared with ECG of 30-DEC-2016 09:36, Diagnosis Line: (unconfirmed) Diagnosis Line: No significant change was found Diagnosis Line: Confirmed by BESSIE RUIZ MD ([id number]) on 12/30/2016 Diagnosis Line: 2:52:03 PM Diagnosis Line: Also confirmed by BESSIE RUIZ MD ([id number]) on Diagnosis Line: 12/30/2016 2:52:41 PM INTERPRETING MD: SARA FERNANDEZ
--- NOTE | ~2016-12-30 | CR279 ---
[facility] A Service of [facility] RADIOLOGY TEXT RESULTS PATIENT: VIKRAM KENDRICK LOCATION: [facility] 579-01 : 39 UNIT #: [id number] AGE: [address]: Azalia Espinoza MD SEX: F ORDER DR: [id number] [facility] [address] [facility]. [place], [place] [address] [id number] I MR#: [id number] Acc #: [id number] NAME: VIKRAM KENDRICK : 1940 SEX: F STUDY DATE/TIME: 01/01/2017 8:49 UNIT: [facility] ROOM: [facility] STUDY DESCRIPTION: CR Wrist 2 View Rt Attending Physician: Azalia Espinoza M.D. Ordering Physician: Luca Luna M.D. Primary Care Physician: Luca Luna M.D. MEDICAL IMAGING REPORT This report is preliminary unless electronic signature is present EXAM Right wrist series, 01/01/2017. HISTORY Pain and swelling right wrist not in anterior distal 1 1/2 months duration. Patient states she fell 1 1/2 months ago. TECHNIQUE AP, lateral, and oblique radiographs of the right wrist are presented. FINDINGS Extensive bony demineralization. Intravenous access along the dorsal aspect of the wrist. No traumatic fracture or malalignment is seen. There is marked degenerative change at the basal joint of thumb. Along the anterior aspect of the distal forearm, there is a localized area of soft tissue swelling measuring about 5 cm in length by about 2 cm in thickness. This is probably more along the radial than ulnar aspect of the wrist and should be evident on physical examination. No associated soft tissue defect, subcutaneous air, or radiodense foreign body is seen. Dictated by... Saleem Boyd M.D. THIS IS AN ELECTRONICALLY VERIFIED REPORT Saleem Boyd M.D. at 01/02/2017 6:36 PM Augusto TD: 01/01/2017 10:47 JOB #: [id number] MEDICAL IMAGING REPORT [facility] A Service of [facility] & [facility] RADIOLOGY TEXT RESULTS PATIENT: VIKRAM KENDRICK LOCATION: [facility] 579-01 : 39 UNIT #: [id number] AGE: [address]: Azalia Espinoza MD SEX: F ORDER DR: Page 1 of 1 COPY
--- NOTE | ~2016-12-30 | TH ---
Unit #: [id number] #: [id number] Patient: VIKRAM KENDRICK [id number] [address] [address] [id number] I MR#: [id number] NAME: VIKRAM KENDRICK : 1940 SEX: F STUDY DATE/TIME: UNIT: [facility] ROOM: 579 STUDY DESCRIPTION: Imaging STudy Attending Physician: Azalia Espinoza M.D. Primary Care Physician: Luca Luna M.D. CARDIOLOGY REPORT EXAM Nuclear stress test INDICATION Chest discomfort and dyspnea SUMMARY Patient underwent nuclear stress test. Patient received a rest dose of 11.8 mCi and a stress dose of 31.8 mCi. On gated imaging patient appears to have normal wall motion with a preserved ejection fraction. The patient's LVEF is 73%. On perfusion imaging, comparing rest and stress images, there appears to be a fixed defect involving the inferior, inferoapical, inferoseptal area with no reversibility, also on gated imaging with normal wall motion. This defect likely represents an artifact. CONCLUSION 1. No obvious ischemia. 2. Preserved ejection fraction. 3. ECG portion to be dictated separately. 4. Inferior attenuation artifact present. Dictated by... Elena Page M.D. WI/gloria TD: 12/31/2016 16:54 JOB #: [id number] Unit #: [id number] #: [id number] Patient: VIKRAM KENDRICK CARDIOLOGY REPORT Page 1 of 1 X ELENA PAGE MD CARDIOLOGY REPORT
--- NOTE | ~2016-12-30 | MR188 ---
[facility] A Service of [facility] & [facility] RADIOLOGY TEXT RESULTS PATIENT: VIKRAM KENDRICK LOCATION: [facility] 579-01 : 39 UNIT #: [id number] AGE: [address]: Azalia Espinoza MD SEX: F ORDER DR: [id number] [facility] [address] [place], [place] [address] [id number] I MR#: [id number] Acc #: [id number] NAME: VIKRAM KENDRICK : 1940 SEX: F STUDY DATE/TIME: 01/02/2017 20:59 UNIT: [facility] ROOM: [facility] STUDY DESCRIPTION: MR Wrist Wo Contrast Rt Attending Physician: Azalia Espinoza M.D. Ordering Physician: Praveen Gillette M.D. Primary Care Physician: Luca Luna M.D. MRI CENTER REPORT This report is preliminary unless electronic signature is present. EXAM Right wrist MRI without contrast, 01/02/2017. HISTORY 76-year-old female with right wrist/distal forearm soft tissue mass which appeared following fall 6 weeks ago. Patient sustained a laceration to the volar forearm. COMPARISON Right forearm MRI 01/02/2017. Right wrist x-rays 01/01/2017 and 11/27/2016 TECHNIQUE Routine, unenhanced, multiplanar, multisequence, high field MR imaging of the right wrist was performed. FINDINGS The examination is severely limited by motion artifact. Allowing for this, no convincing evidence of acute right wrist injury. There are degenerative changes of the distal radioulnar joint, as well as advanced degenerative change of the first carpometacarpal joint. No MR findings to suggest acute fracture. There is a partially imaged fluid collection in the volar soft tissues of the distal forearm, superficial to the flexor carpi radialis tendon and flexor compartment musculature. Please see report for right forearm MRI performed the same date and dictated separately. This is felt most likely to represent a subacute soft tissue hematoma. No intermuscular or intramuscular extension of the fluid to suggest a high-grade muscle or tendon laceration. Flexor and extensor tendons appear otherwise unremarkable. IMPRESSION 1. Severely motion limited exam. [facility] A Service of [facility] & [facility] RADIOLOGY TEXT RESULTS PATIENT: VIKRAM KENDRICK LOCATION: [facility] 579-01 : 39 UNIT #: [id number] AGE: [address]: Azalia Espinoza MD SEX: F ORDER DR: 2. Partially imaged fluid collection in the volar subcutaneous soft tissues of the distal forearm. Please see report for right forearm MRI performed the same date and dictated separately for a detailed evaluation. This is felt most likely to represent a subacute soft tissue hematoma. No evidence of high-grade muscle or tendon laceration. 3. No gross acute fracture or dislocation. Advanced arthrosis of the first carpometacarpal joint and mild arthrosis of the distal radioulnar joint. 4. Preliminary wet read provided by Dr. Jose Walker at 2332 hours 01/02/2017. Dictated by... Justin Leyva M.D. THIS IS AN ELECTRONICALLY VERIFIED REPORT Justin Leyva M.D. at 01/03/2017 4:52 PM YAO/shraddha TD: 01/03/2017 10:29 JOB #: [id number] MRI CENTER REPORT Page 1 of 1 COPY
--- NOTE | ~2016-12-30 | MR67 ---
[facility] A Service of [facility] & [facility] RADIOLOGY TEXT RESULTS PATIENT: VIKRAM KENDRICK LOCATION: [facility] 579-01 : 39 UNIT #: [id number] AGE: [address]: Azalia Espinoza MD SEX: F ORDER DR: [id number] [facility] [address] [place], [place] [address] [id number] I MR#: [id number] Acc #: [id number] NAME: VIKRAM KENDRICK : 1940 SEX: F STUDY DATE/TIME: 01/02/2017 21:41 UNIT: [facility] ROOM: [facility] STUDY DESCRIPTION: MR Forearm Wo Contrast Rt Attending Physician: Azalia Espinoza M.D. Ordering Physician: Praveen Gillette M.D. Primary Care Physician: Luca Luna M.D. MRI CENTER REPORT This report is preliminary unless electronic signature is present. EXAM Right forearm MRI without contrast, 01/02/2017 HISTORY 76-year-old female with right wrist and forearm soft tissue mass along the volar aspect of the forearm. History of fall 6 weeks ago with right volar forearm laceration. Soft tissue mass has arisen since that time. COMPARISON Right wrist and forearm x-rays 11/27/2016. Right wrist x-ray 01/01/2017. Right wrist MRI 01/02/2017. TECHNIQUE Routine unenhanced multiplanar, multisequence high field MR imaging of the right forearm was performed. FINDINGS The examination is significantly limited by motion artifact. Allowing for this, there is a fluid collection noted within the volar soft tissues of the distal forearm at the level of the distal third of the radius. The collection is superficial to the flexor compartment musculature and flexor carpi radialis tendon. The collection measures approximately 2.7 x 1.6 cm in cross-section and 5.4 cm in length. The collection is T2 hyperintense with a peripheral rim of low T2 signal and heterogeneously hyperintense to muscle on T1-weighted imaging. The signal characteristics are most suggestive of soft tissue hematoma, particularly given the history of recent soft tissue laceration. There is no intermuscular or intramuscular extension to suggest muscle laceration. No retracted tendon injuries to suggest tendon laceration. Bone marrow signal is within normal limits. IMPRESSION STS. [facility] A Service of [facility] RADIOLOGY TEXT RESULTS PATIENT: VIKRAM KENDRICK LOCATION: [facility] 579-01 : 39 UNIT #: [id number] AGE: [address]: Azalia Espinoza MD SEX: F ORDER DR: Fluid collection noted in the volar subcutaneous soft tissues at the level of the distal third of the forearm superficial to the flexor carpi radialis tendon and flexor compartment musculature. The collection measures 2.7 x 1.6 cm in cross section and 5.4 cm in length. The appearance is most suggestive of subacute soft tissue hematoma. No intermuscular or intramuscular extension of the fluid to suggest tendon or muscular laceration. No acute bony abnormality. Preliminary wet read provided by Dr. Jose Walker at 23:35 hours 01/02/2017. Dictated by... Justin Leyva M.D. THIS IS AN ELECTRONICALLY VERIFIED REPORT Justin Leyva M.D. at 01/03/2017 4:51 PM YAO/oscar TD: 01/03/2017 09:19 JOB #: [id number] MRI CENTER REPORT Page 1 of 1 COPY
--- NOTE | ~2016-12-30 | HP ---
Unit #: [id number] #: [id number] Patient: VIKRAM KENDRICK [id number] [place], [place] [address] [id number] MR#: [id number] NAME: VIKRAM KENDRICK ROOM: 579 Age: 76 Sex: F Admission Date: 12/30/2016 : 1940 Attending Physician: Azalia Espinoza M.D. Primary Care Physician: Luca Luna M.D. HISTORY AND PHYSICAL HISTORY OF PRESENT ILLNESS 76-year-old white female with a history of hypertension, coronary artery disease, hiatal hernia, chronic kidney disease stage 3, chronic anemia, admitted through the emergency room with less than 24 hours of substernal chest pain, worse with exertion. Really only pleuritic, fairly constant. Has been constant ever since she was admitted. Cardiac enzymes and EKG showed no significant coronary artery disease as far as changes go and she is set up for a Cardiolite this morning. The patient denies any swallowing difficulties but does have chronic reflux, hiatal. Has had multiple procedures for same. History of peptic ulcer disease. She has no other complaints at this time. MEDICATIONS There is no home Med Rec on the chart. Per the last discharge summary, she was on: 1. Amiodarone 100 mg b.i.d. 2. Imdur ER 30 mg daily. 3. Norvasc 5 mg daily. 4. Lipitor 20 mg daily. 5. Clonidine 0.25 mg b.i.d. 6. Carafate 1 g b.i.d. 7. Multivitamins daily. 8. [place] 5/325 t.i.d. p.r.n. 9. Protonix 40 mg b.i.d. 10. Nitrostat p.r.n. PAST MEDICAL HISTORY Again, the patient has a history of: 1. Hypertension. 2. Coronary disease. 3. Hiatal hernia. 4. Chronic kidney disease stage 3. 5. Kyphoscoliosis. 6. Peptic ulcer disease. 7. Chronic venous insufficiency. 8. Status post left hip endoprosthesis. 9. Bilateral renal cysts. 10. Chronic anemia. 11. Status post laparoscopic gastroplexy with gastrostomy and eventual removal of gastrostomy tubes. 12. Sick sinus syndrome. SOCIAL HISTORY She is . Nonsmoker, nondrinker. No street drug use. Unit #: [id number] #: [id number] Patient: VIKRAM KENDRICK FAMILY HISTORY Noncontributory. PHYSICAL EXAMINATION GENERAL: She is awake, alert, oriented x3, in no acute distress. VITAL SIGNS: Afebrile. Pulse 62, respirations 18, blood pressure 172/77. O2 sats 100% on 2 L. HEENT: Unremarkable except for a large scar on her forehead from her previous skin cancer removal. NECK: Supple without JVD, bruits, adenopathy or thyromegaly. CHEST: Clear to auscultation. HEART: Regular rate and rhythm without any murmurs, rubs or gallops. ABDOMEN: Soft, nondistended, nontender with positive bowel sounds and no hepatosplenomegaly. EXTREMITIES: No clubbing, cyanosis or edema. /RECTAL: Deferred. NEUROLOGICAL: Grossly intact. DIAGNOSTIC STUDIES LABORATORY: Cardiac enzymes normal x5 sets. CBC within normal limits except for hemoglobin of 9.5. CMP normal except for potassium of 3.4, GFR of 54, alkaline phos. 166, albumin 3.3. CARDIOVASCULAR: EKG - sinus bradycardia, sinus arrhythmia, right bundle branch block. No change. TFTs within normal limits. IMAGING: Chest x-ray - no active disease. IMPRESSION 1. Atypical chest pain with a pleuritic component. 2. Hypertension. 3. Osteoarthritis. 4. Chronic kidney disease stage 3. 5. History of coronary artery disease, status post stenting. 6. Hiatal hernia with GE reflux disease. 7. Chronic anemia. PLAN Cardiolite. Bilateral lower extremity venous ultrasound. Resume Carafate. Possible V/Q scan after Cardiolite. If it is negative, further evaluation pending results of above. Dictated by Augustin Loaiza TD: 12/31/2016 09:11 JOB #: [id number] Unit #: [id number] #: [id number] Patient: VIKRAM KENDRICK HISTORY AND PHYSICAL Page 1 of 1 X Luca Luna MD X HISTORY AND PHYSICAL
[2016-12-30 11:07] LABS: POC - CKMB 2.2 ng/mL (0.0-7.9); POC - TROPONIN <0.05 ng/mL (<=0.05)
[2016-12-30 11:07] LABS: BASOPHIL% 0.6 % (0-2.5); EOSINOPHIL% 0.5 % (0.0-7.0); HEMATOCRIT 30.2 % (35.0-45.0); HEMOGLOBIN 9.5 gm/dL (12.0-16.0); LYMPHOCYTE# 0.4 X10e3 (1.0-3.5); LYMPHOCYTE% 7.6 % (17.0-45.0); MEAN CELL VOLUME 88.9 FL (83-96); MEAN CORPUSCULAR HEMOGLOBIN 27.9 PG (28-34); MEAN CORPUSCULAR HGB CONC 31.3 g/dL (30-36); MEAN PLATELET VOLUME 9.5 FL (6.5-11.5); MONOCYTE# 0.4 X10e3 (0-1.0); MONOCYTE% 7.1 % (3.0-12.0); NEUTROPHIL# 4.8 X10e3 (1.5-7.1); NEUTROPHIL% 84.2 % (40-75); PLATELET COUNT 211 X10e3 (140-420); RED CELL DISTRIBUTION WIDTH 15.6 % (11.0-15.5); WHITE BLOOD COUNT 5.7 X10e3 (4.0-10.5)
[2016-12-30 11:08] LABS: DIFF IND NO
[2016-12-30 11:29] LABS: ALBUMIN SERUM 3.3 g/dL (3.5-5.0); BILIRUBIN, DIRECT 0.1 mg/dL (0.0-0.2); BILIRUBIN,INDIRECT 0.3 mg/dL (0.0-0.9); BILIRUBIN,TOTAL 0.4 mg/dL (0.2-2.0); CALCIUM SERUM 8.7 mg/dL (8.4-10.2); GLOM FILT RATE Estimated 54.3 mL/min (>60); POTASSIUM 3.4 mmol/L (3.5-5.1); PROTEIN TOTAL SERUM 7.2 g/dL (6.0-8.3)
[2016-12-30 12:38] LABS: POC - CKMB 2.2 ng/mL (0.0-7.9); POC - TROPONIN <0.05 ng/mL (<=0.05)
[2016-12-30 16:12] LABS: THYROID STIMULATING HORMONE 3.1 uIU/ml (0.34-5.60)
[2016-12-30 16:19] LABS: FREE THYROXIN (T4) 1.41 ng/dL (0.58-1.64)
[2016-12-30 16:25] LABS: MB 4.6 ng/ml
[2016-12-30 19:30] LABS: %MB 4.6 % (0.0-4.0); MB 3.9 ng/ml
[2016-12-30 22:32] LABS: %MB 5.1 % (0.0-4.0)
[2016-12-31 09:19] LABS: BUN/CREATININE RATIO 16.42; CALCIUM SERUM 8.4 mg/dL (8.4-10.2); CREATININE SERUM 1.4 mg/dL (0.6-1.4); GLOM FILT RATE Estimated 36.1 mL/min (>60); MAGNESIUM 2.2 mg/dL (1.6-3.0); POTASSIUM 3.6 mmol/L (3.5-5.1)
[2016-12-31 09:52] LABS: %MB 4.9 % (0.0-4.0)
[2017-01-01 06:17] LABS: HEMATOCRIT 25.6 % (35.0-45.0); HEMOGLOBIN 8.2 gm/dL (12.0-16.0); MEAN CELL VOLUME 87.3 FL (83-96); MEAN CORPUSCULAR HGB CONC 32.1 g/dL (30-36); MEAN PLATELET VOLUME 9.2 FL (6.5-11.5); RED BLOOD COUNT 2.94 X10e (3.90-5.30); RED CELL DISTRIBUTION WIDTH 15.7 % (11.0-15.5); WHITE BLOOD COUNT 4.1 X10e3 (4.0-10.5)
[2017-01-01 06:59] LABS: BUN/CREATININE RATIO 19.23; CALCIUM SERUM 8.1 mg/dL (8.4-10.2); CREATININE SERUM 1.3 mg/dL (0.6-1.4); GLOM FILT RATE Estimated 39.5 mL/min (>60); MAGNESIUM 2.2 mg/dL (1.6-3.0); POTASSIUM 3.7 mmol/L (3.5-5.1)
[2017-01-01 17:04] LABS: FOLATE (FOLIC ACID) 19.6 ng/mL (>5.8)
[2017-01-02 06:43] LABS: HEMATOCRIT 27.2 % (35.0-45.0); HEMOGLOBIN 8.7 gm/dL (12.0-16.0); MEAN CELL VOLUME 86.6 FL (83-96); MEAN CORPUSCULAR HEMOGLOBIN 27.8 PG (28-34); MEAN CORPUSCULAR HGB CONC 32.1 g/dL (30-36); MEAN PLATELET VOLUME 9.3 FL (6.5-11.5); RED BLOOD COUNT 3.14 X10e (3.90-5.30); RED CELL DISTRIBUTION WIDTH 15.4 % (11.0-15.5); WHITE BLOOD COUNT 4.7 X10e3 (4.0-10.5)
[2017-01-02 07:08] LABS: BUN/CREATININE RATIO 18.57; CALCIUM SERUM 8.6 mg/dL (8.4-10.2); CREATININE SERUM 1.4 mg/dL (0.6-1.4); GLOM FILT RATE Estimated 36.1 mL/min (>60); POTASSIUM 3.7 mmol/L (3.5-5.1)
[2017-01-03 05:19] LABS: HEMATOCRIT 26.6 % (35.0-45.0); HEMOGLOBIN 8.6 gm/dL (12.0-16.0); MEAN CELL VOLUME 87.2 FL (83-96); MEAN CORPUSCULAR HEMOGLOBIN 28.1 PG (28-34); MEAN CORPUSCULAR HGB CONC 32.2 g/dL (30-36); MEAN PLATELET VOLUME 9.3 FL (6.5-11.5); RED BLOOD COUNT 3.05 X10e (3.90-5.30); RED CELL DISTRIBUTION WIDTH 15.3 % (11.0-15.5); WHITE BLOOD COUNT 5.5 X10e3 (4.0-10.5)
[2017-01-04 10:10] LABS: HEMATOCRIT 31.1 % (35.0-45.0); HEMOGLOBIN 9.6 gm/dL (12.0-16.0); MEAN CELL VOLUME 88.2 FL (83-96); MEAN CORPUSCULAR HEMOGLOBIN 27.3 PG (28-34); MEAN PLATELET VOLUME 9.3 FL (6.5-11.5); RED BLOOD COUNT 3.53 X10e (3.90-5.30); RED CELL DISTRIBUTION WIDTH 15.5 % (11.0-15.5); WHITE BLOOD COUNT 5.4 X10e3 (4.0-10.5)
[2017-01-04] MEDS ORDERED: AMIODARONE PO (18:38)
[2017-01-04] MEDS ORDERED: BACTROBAN15 GM TOP (18:39)
[2017-01-04] MEDS ORDERED: AMLODIPINE BESYL5 MG PO (18:39)
[2017-01-04] MEDS ORDERED: LIPITOR20 MG PO (18:40)
[2017-01-04] MEDS ORDERED: [UNRECOGNIZED DRUG - CODE] SUBQ (18:40)
[2017-01-04] MEDS ORDERED: HYDRALAZINE HCL50 MG PO (18:41)
[2017-01-04] MEDS ORDERED: CLONIDINE TOP (18:41)
[2017-01-04] MEDS ORDERED: CARAFATE1 GM PO (18:42)
[2017-01-04] MEDS ORDERED: HYDROCODON-ACE1 EA13 PO (18:43)
[2017-01-04] MEDS ORDERED: PROTONIX40 M1 PO (18:43)
[2017-01-04] MEDS ORDERED: IMDUR PO (18:43)
== END 2017-01-04 20:13 | disposition home or self-care (01) | DRG 812 ==
LOC: CED 10:21 → CEDOF 11:45 → C5C 12-31 00:44
PROVIDERS: Emergency Medicine; Internal Medicine; Internal Medicine Cardiovascular Disease; Nurse Practitioner; Physician Assistant Medical; Specialist
PROC: B24BYZZ Ultrasonography of Heart with Aorta using Other Contrast (ICD-10-PCS; principal; 2016-12-31)
DX: D50.9 Iron deficiency anemia, unspecified (principal); I49.5 Sick sinus syndrome; N18.3 Chronic kidney disease, stage 3 (moderate); I25.10 Atherosclerotic heart disease of native coronary artery without angina pectoris; M41.9 Scoliosis, unspecified; K44.9 Diaphragmatic hernia without obstruction or gangrene; I12.9 Hypertensive chronic kidney disease with stage 1 through stage 4 chronic kidney disease, or unspecified chronic kidney disease; K21.9 Gastro-esophageal reflux disease without esophagitis; Z87.11 Personal history of peptic ulcer disease; Z96.642 Presence of left artificial hip joint; I87.2 Venous insufficiency (chronic) (peripheral); M19.90 Unspecified osteoarthritis, unspecified site; Z95.5 Presence of coronary angioplasty implant and graft; I35.0 Nonrheumatic aortic (valve) stenosis; R00.2 Palpitations; M94.0 Chondrocostal junction syndrome [Tietze]; I45.10 Unspecified right bundle-branch block; A49.02 Methicillin resistant Staphylococcus aureus infection, unspecified site; S60.211A Contusion of right wrist, initial encounter
CPT/HCPCS: 36415; 71010; 73100; 73218; 73221; 78452; 80048; 80061; 80076; 82274; 82550; 82553; 82607; 82668; 82728; 82746; 82747; 83010; 83540; 83550; 83735; 84439; 84443; 84484; 85025; 85027; 85044; 87070; 87077; 87186; 87205; 93005; 93017; 93306; 93970; 94760; 96374; 96375; 97110; 97116; 97161; 97166; 97530; 97535; 99285; A9500; C9113; G8978-GP; G8979-GP; G8987-GO; G8988-GO; J0885; J1650; J2270; J2765; J2785; Q0138

== ENCOUNTER 2017-01-07 09:52 | Emergency (ER) | payer OTHER ==
--- NOTE | ~2017-01-07 | CT4 ---
[facility] A Service of [facility] & [facility] RADIOLOGY TEXT RESULTS PATIENT: VIKRAM KENDRICK LOCATION: [facility] : 39 UNIT #: [id number] AGE: [address]: Cuong Mejias MD SEX: F ORDER DR: [id number] [facility] [address] [place], [place] [address] [id number] E MR#: [id number] #: [id number] NAME: VIKRAM KENDRICK : 1940 SEX: F STUDY DATE/TIME: 01/07/2017 10:15 UNIT: [facility] ROOM: STUDY DESCRIPTION: CT Abd and Pelv Wo Cont Attending Physician: Cuong Mejias M.D. Ordering Physician: Cuong Mejias M.D. Primary Care Physician: Luca Luna M.D. MEDICAL IMAGING REPORT This report is preliminary unless electronic signature is present EXAM CT abdomen and pelvis without contrast, 01/07/2017 10:15 hours HISTORY 76-year-old woman with infected right lower leg, complaining of worsening abdominal pain, nausea, vomiting and diarrhea. History of MRSA infection. Abdominal symptoms for [address] abdomen and pelvis, 12/08/2016 TECHNIQUE Helical noncontrasted images were obtained from the lung bases through the pubic symphysis without oral or intravenous contrast. Sagittal and coronal reconstructions were performed. Total exam DLP 1058 mGy-cm. This CT exam was performed with one or more of the following radiation dose reduction techniques: automatic exposure control, adjustment of mA and/or kV according to patient size, and iterative reconstruction. FINDINGS Images through the lung bases demonstrate cardiomegaly with a moderate sized hiatal hernia. The lungs are clear and there are no effusions. Noncontrasted images through the abdomen demonstrate a normal appearance to the liver, spleen, pancreas, gallbladder and bile ducts. The adrenal glands are normal. There is a cyst in the posterior lower pole right kidney unchanged. There are nonobstructing stones in the left kidney as well as cysts and hyperdense cysts in the left kidney which are unchanged. The aorta is tortuous but normal in caliber. The stomach is nondistended and no wall thickening is seen. There is no small bowel distension or small bowel wall thickening. There is moderate STS. [facility] A Service of [facility] RADIOLOGY TEXT RESULTS PATIENT: VIKRAM KENDRICK LOCATION: [facility] : 39 UNIT #: [id number] AGE: [address]: Cuong Mejias MD SEX: F ORDER DR: stool in the right colon with decompressed distal colon. No bowel wall thickening, ascites or free air. CT pelvis demonstrates a normal appearance to the uterus with calcification in the fundus likely related to a fibroid. There is no adnexal mass or free fluid. There is streak artifact from hardware at the left hip. There is multilevel degenerative change and reversal of lordosis in the lumbar spine which is similar to prior study. IMPRESSION 1. No acute findings are seen in the abdomen and pelvis. Incidental findings of large hiatal hernia, left-sided nonobstructing renal stones and bilateral renal cysts including hyperdense cyst unchanged. There is moderate stool in the right colon but no distension of the small bowel or colon. 2. Negative CT pelvis. 3. Scoliosis and reversal of the normal lumbar lordosis. There is no acute finding in the lumbar spine. Dictated by... Radha James M.D. THIS IS AN ELECTRONICALLY VERIFIED REPORT Radha James M.D. at 01/07/2017 2:28 PM [place] TD: 01/07/2017 12:22 JOB #: [id number] MEDICAL IMAGING REPORT Page 1 of 1 COPY
[2017-01-07 09:52] LABS: BASOPHIL% 0.4 % (0-2.5); EOSINOPHIL% 0.4 % (0.0-7.0); HEMATOCRIT 31.5 % (35.0-45.0); HEMOGLOBIN 10.2 gm/dL (12.0-16.0); LYMPHOCYTE# 0.7 X10e3 (1.0-3.5); LYMPHOCYTE% 10.5 % (17.0-45.0); MEAN CELL VOLUME 88.9 FL (83-96); MEAN CORPUSCULAR HEMOGLOBIN 28.8 PG (28-34); MEAN CORPUSCULAR HGB CONC 32.4 g/dL (30-36); MEAN PLATELET VOLUME 8.2 FL (6.5-11.5); MONOCYTE# 0.6 X10e3 (0-1.0); MONOCYTE% 8.7 % (3.0-12.0); NEUTROPHIL# 5.3 X10e3 (1.5-7.1); PLATELET COUNT 231 X10e3 (140-420); RED BLOOD COUNT 3.54 X10e (3.90-5.30); RED CELL DISTRIBUTION WIDTH 16.4 % (11.0-15.5); WHITE BLOOD COUNT 6.6 X10e3 (4.0-10.5)
[~2017-01-07 09:52] MED LIST changes: +AMIODARONE PO; +AMLODIPINE BESYL5 MG PO; +BACTROBAN15 GM TOP; +CLONIDINE TOP; +HYDROCODON-ACE1 EA13 PO; +IMDUR PO; +PROTONIX40 M1 PO; +[UNRECOGNIZED DRUG - CODE] SUBQ
[2017-01-07 09:53] LABS: DIFF IND NO
[2017-01-07 10:21] LABS: ALBUMIN SERUM 3.6 g/dL (3.5-5.0); BILIRUBIN, DIRECT 0.1 mg/dL (0.0-0.2); BILIRUBIN,INDIRECT 0.3 mg/dL (0.0-0.9); BILIRUBIN,TOTAL 0.4 mg/dL (0.2-2.0); BUN/CREATININE RATIO 13.75; CALCIUM SERUM 8.8 mg/dL (8.4-10.2); CREATININE SERUM 1.6 mg/dL (0.6-1.4); GLOM FILT RATE Estimated 30.8 mL/min (>60); PROTEIN TOTAL SERUM 7.2 g/dL (6.0-8.3)
== END 2017-01-07 13:00 | disposition home or self-care (01) ==
LOC: CED 09:52
PROVIDERS: Emergency Medicine
DX: R10.84 Generalized abdominal pain (principal); R11.2 Nausea with vomiting, unspecified; R19.7 Diarrhea, unspecified; I12.9 Hypertensive chronic kidney disease with stage 1 through stage 4 chronic kidney disease, or unspecified chronic kidney disease; N18.9 Chronic kidney disease, unspecified; D64.9 Anemia, unspecified; Z88.0 Allergy status to penicillin; Z88.8 Allergy status to other drugs, medicaments and biological substances; Z79.899 Other long term (current) drug therapy
CPT/HCPCS: 36415; 74176; 80048; 80076; 82150; 83690; 85025; 96361; 96372; 96374; 99284; J0500; J2405

== ENCOUNTER 2017-03-10 08:03 | Emergency (ER) | payer OTHER ==
--- NOTE | ~2017-03-10 | EKG ---
PATIENT: VIKRAM KENDRICK UNIT #: [id number] Ventricular Rate: 64 BPM Atrial Rate: 64 BPM P-R Interval: 202 ms QRS Duration: 152 ms Q-T Interval: 472 ms QTC Calculation(Bezet): 486 ms P [place]: 30 degrees Calculated R [place]: -7 degrees Calculated T [place]: -4 degrees Diagnosis Line: Normal sinus rhythm with sinus arrhythmia Diagnosis Line: Right bundle branch block Diagnosis Line: Abnormal ECG Diagnosis Line: When compared with ECG of 31-DEC-2016 09:33, Diagnosis Line: No significant change was found Diagnosis Line: Confirmed by RICKIE BERGERON MD ([id number]) on 03/10/2017 Diagnosis Line: 4:52:25 PM INTERPRETING MD: ELYSSA FERNANDEZ
[2017-03-10 08:45] LABS: URINE SOURCE CLEAN CATCH
[2017-03-10 09:00] LABS: URINE APPEARANCE CLEAR; URINE BILIRUBIN NEG (NEG); URINE BLOOD NEG (NEG); URINE COLOR YELLOW; URINE GLUCOSE NEG (NEG); URINE KETONE NEG (NEG); URINE LEUKOCYTE ESTERASE 2+ (NEG); URINE NITRATE NEG (NEG); URINE PROTEIN 1+ (NEG); URINE SPECIFIC GRAVITY 1.009 (1.003-1.035); URINE UROBILINOGEN 0.2 MG/DL (NEG)
[2017-03-10 09:02] LABS: CULTURE INDICATED? YES; URBCS1 AUWI 0-2 /[HPF] (0-2); URINE BACTERIA AUWI 1+ (NEGATIVE); URINE SQUAMOUS EPITHELIAL CELL NONE SEEN /[HPF]
[2017-03-10 09:18] LABS: BASOPHIL% 0.4 % (0-2.5); EOSINOPHIL% 0.7 % (0.0-7.0); HEMATOCRIT 33.5 % (35.0-45.0); HEMOGLOBIN 10.7 gm/dL (12.0-16.0); LYMPHOCYTE# 0.6 X10e3 (1.0-3.5); LYMPHOCYTE% 10.4 % (17.0-45.0); MEAN CELL VOLUME 87.8 FL (83-96); MEAN CORPUSCULAR HGB CONC 31.8 g/dL (30-36); MEAN PLATELET VOLUME 8.2 FL (6.5-11.5); MONOCYTE# 0.4 X10e3 (0-1.0); MONOCYTE% 7.1 % (3.0-12.0); NEUTROPHIL# 4.9 X10e3 (1.5-7.1); NEUTROPHIL% 81.4 % (40-75); PLATELET COUNT 181 X10e3 (140-420); RED BLOOD COUNT 3.81 X10e (3.90-5.30); RED CELL DISTRIBUTION WIDTH 18.3 % (11.0-15.5); WHITE BLOOD COUNT 6.1 X10e3 (4.0-10.5)
[2017-03-10 09:30] LABS: POC - CKMB 1.3 ng/mL (0.0-7.9); POC - TROPONIN <0.05 ng/mL (<=0.05)
[2017-03-10 09:30] LABS: DIFF IND NO
[2017-03-10 09:48] LABS: ALBUMIN SERUM 3.4 g/dL (3.5-5.0); BILIRUBIN,TOTAL 0.6 mg/dL (0.2-2.0); BUN/CREATININE RATIO 14.61; CALCIUM SERUM 8.6 mg/dL (8.4-10.2); CREATININE SERUM 1.3 mg/dL (0.6-1.4); GLOM FILT RATE Estimated 39.5 mL/min (>60); POTASSIUM 3.9 mmol/L (3.5-5.1); PROTEIN TOTAL SERUM 7.1 g/dL (6.0-8.3)
== END 2017-03-10 11:00 | disposition home or self-care (01) ==
LOC: CED 08:03
PROVIDERS: Physician Assistant Medical
DX: N39.0 Urinary tract infection, site not specified (principal); N28.9 Disorder of kidney and ureter, unspecified; R19.7 Diarrhea, unspecified; I10 Essential (primary) hypertension; Z98.890 Other specified postprocedural states
CPT/HCPCS: 80053; 81003; 82150; 82553; 83690; 84484; 85025; 87086; 93005; 96361; 96374; 99284; C9113

== ENCOUNTER 2017-04-21 19:23 | Emergency (ER) | payer OTHER ==
[~2017-04-21] VITALS: Ht 160 cm; Wt 89.3 kg
--- NOTE | ~2017-04-21 | CR72 ---
[facility] A Service of [facility] & [facility] RADIOLOGY TEXT RESULTS PATIENT: VIKRAM KENDRICK LOCATION: [facility] : 39 UNIT #: [id number] AGE: [address]: Saleem Lucas MD SEX: F ORDER DR: [id number] [facility] [address] [place], [place] [address] [id number] E MR#: [id number] Acc #: [id number] NAME: VIKRAM KENDRICK : 1940 SEX: F STUDY DATE/TIME: 04/21/2017 21:36 UNIT: [facility] ROOM: STUDY DESCRIPTION: CR Chest Single View Portable Attending Physician: Saleem Lucas M.D. Ordering Physician: Beverly Rome M.D. Primary Care Physician: Luca Luna M.D. MEDICAL IMAGING REPORT This report is preliminary unless electronic signature is present EXAM Portable chest HISTORY Shortness of air, feet swelling, abdominal pain since this morning. COMPARISON 12/30/2016 FINDINGS Portable view of the chest demonstrates bibasilar atelectasis. Mild cardiomegaly. Mild aortic atherosclerotic changes. No infiltrates or sizeable effusions. No pneumothorax. Dictated by... Spring Lorenzo M.D. THIS IS AN ELECTRONICALLY VERIFIED REPORT Spring Lorenzo M.D. at 04/22/2017 5:38 PM Don TD: 04/22/2017 09:23 JOB #: [id number] MEDICAL IMAGING REPORT Page 1 of 1 COPY
--- NOTE | ~2017-04-21 | EKG ---
PATIENT: VIKRAM KENDRICK UNIT #: [id number] Ventricular Rate: 68 BPM Atrial Rate: 68 BPM P-R Interval: 184 ms QRS Duration: 136 ms Q-T Interval: 472 ms QTC Calculation(Bezet): 501 ms P [place]: 71 degrees Calculated R [place]: -31 degrees Calculated T [place]: 7 degrees Diagnosis Line: Sinus rhythm with occasional Premature ventricular Diagnosis Line: complexes Diagnosis Line: Left axis deviation Diagnosis Line: Right bundle branch block Diagnosis Line: Abnormal ECG Diagnosis Line: When compared with ECG of 21-APR-2017 22:32, Diagnosis Line: (unconfirmed) Diagnosis Line: T wave inversion now evident in Inferior leads Diagnosis Line: T wave inversion no longer evident in Lateral Diagnosis Line: leads Diagnosis Line: Confirmed by LAMONT MARI MD ([id number]) on Diagnosis Line: 04/22/2017 7:55:07 AM INTERPRETING MD: JACEY FERNANDEZ
[2017-04-21 20:48] LABS: BASOPHIL% 0.3 % (0-2.5); EOSINOPHIL# 0.1 X10e3 (0-0.7); EOSINOPHIL% 0.7 % (0.0-7.0); HEMOGLOBIN 11.2 gm/dL (12.0-16.0); LYMPHOCYTE# 0.8 X10e3 (1.0-3.5); LYMPHOCYTE% 9.8 % (17.0-45.0); MEAN CELL VOLUME 88.2 FL (83-96); MEAN CORPUSCULAR HEMOGLOBIN 28.1 PG (28-34); MEAN CORPUSCULAR HGB CONC 31.9 g/dL (30-36); MEAN PLATELET VOLUME 9.1 FL (6.5-11.5); MONOCYTE# 0.6 X10e3 (0-1.0); MONOCYTE% 7.2 % (3.0-12.0); NEUTROPHIL# 6.6 X10e3 (1.5-7.1); PLATELET COUNT 213 X10e3 (140-420); RED BLOOD COUNT 3.97 X10e (3.90-5.30); RED CELL DISTRIBUTION WIDTH 18.5 % (11.0-15.5); WHITE BLOOD COUNT 8.1 X10e3 (4.0-10.5)
[2017-04-21 20:49] LABS: DIFF IND NO
[2017-04-21 21:13] LABS: ALBUMIN SERUM 3.7 g/dL (3.5-5.0); BILIRUBIN, DIRECT 0.1 mg/dL (0.0-0.2); BILIRUBIN,INDIRECT 1.1 mg/dL (0.0-0.9); BILIRUBIN,TOTAL 1.2 mg/dL (0.2-2.0); BUN/CREATININE RATIO 13.07; CALCIUM SERUM 8.7 mg/dL (8.4-10.2); CREATININE SERUM 1.3 mg/dL (0.6-1.4); GLOM FILT RATE Estimated 39.5 mL/min (>60); POTASSIUM 4.1 mmol/L (3.5-5.1); PROTEIN TOTAL SERUM 7.7 g/dL (6.0-8.3)
[2017-04-21 22:51] LABS: URINE SOURCE CLEAN CATCH
[2017-04-21 23:13] LABS: URINE APPEARANCE CLEAR; URINE BILIRUBIN NEG (NEG); URINE BLOOD NEG (NEG); URINE COLOR YELLOW; URINE GLUCOSE NORM (NEG); URINE KETONE NEG (NEG); URINE LEUKOCYTE ESTERASE 2+ (NEG); URINE NITRATE NEG (NEG); URINE PROTEIN 1+ (NEG); URINE UROBILINOGEN NORM (NEG)
[2017-04-21 23:14] LABS: CULTURE INDICATED? YES; URBCS1 AUWI 0-2 /[HPF] (0-2)
[2017-04-21 23:52] LABS: POC - CKMB 3.1 ng/mL (0.0-7.9); POC - TROPONIN <0.05 ng/mL (<=0.05)
== END 2017-04-22 01:04 | disposition home or self-care (01) ==
LOC: CED 19:23
PROVIDERS: Emergency Medicine
DX: K27.9 Peptic ulcer, site unspecified, unspecified as acute or chronic, without hemorrhage or perforation (principal); I10 Essential (primary) hypertension; I25.10 Atherosclerotic heart disease of native coronary artery without angina pectoris; D64.9 Anemia, unspecified
CPT/HCPCS: 36415; 71010; 80048; 80076; 81003; 82150; 82553; 83690; 83880; 84484; 85025; 87086; 93005; 96361; 96374; 96375; 99284; C9113; J0360; J2405

== ENCOUNTER 2017-04-29 10:24 | Emergency (ER) | payer OTHER ==
[~2017-04-29] VITALS: Ht 160 cm; Wt 89.3 kg
[2017-04-29 11:00] LABS: URINE SOURCE CLEAN CATCH
[2017-04-29 11:07] LABS: URINE APPEARANCE CLEAR; URINE BILIRUBIN NEG (NEG); URINE BLOOD NEG (NEG); URINE COLOR YELLOW; URINE GLUCOSE NEG (NEG); URINE KETONE NEG (NEG); URINE LEUKOCYTE ESTERASE 2+ (NEG); URINE NITRATE NEG (NEG); URINE PROTEIN 2+ (NEG); URINE SPECIFIC GRAVITY 1.012 (1.003-1.035); URINE UROBILINOGEN 0.2 MG/DL (NEG)
[2017-04-29 11:11] LABS: CULTURE INDICATED? YES; U HYALINE CASTS AUWI 0-2 /[LPF]; URBCS1 AUWI 0-2 /[HPF] (0-2); URINE BACTERIA AUWI 1+ (NEGATIVE); URINE SQUAMOUS EPITHELIAL CELL OCC /[HPF]; UWBCS1 AUWI 25-50 (0-5)
[2017-04-29 11:22] LABS: BASOPHIL% 0.5 % (0-2.5); EOSINOPHIL% 0.4 % (0.0-7.0); HEMATOCRIT 34.8 % (35.0-45.0); HEMOGLOBIN 11.3 gm/dL (12.0-16.0); LYMPHOCYTE# 0.7 X10e3 (1.0-3.5); LYMPHOCYTE% 7.8 % (17.0-45.0); MEAN CELL VOLUME 88.7 FL (83-96); MEAN CORPUSCULAR HEMOGLOBIN 28.7 PG (28-34); MEAN CORPUSCULAR HGB CONC 32.4 g/dL (30-36); MEAN PLATELET VOLUME 8.7 FL (6.5-11.5); MONOCYTE# 0.5 X10e3 (0-1.0); MONOCYTE% 5.8 % (3.0-12.0); NEUTROPHIL# 7.3 X10e3 (1.5-7.1); NEUTROPHIL% 85.5 % (40-75); PLATELET COUNT 224 X10e3 (140-420); RED BLOOD COUNT 3.92 X10e (3.90-5.30); RED CELL DISTRIBUTION WIDTH 18.1 % (11.0-15.5); WHITE BLOOD COUNT 8.5 X10e3 (4.0-10.5)
[2017-04-29 11:23] LABS: DIFF IND NO
[2017-04-29 12:00] LABS: ALBUMIN SERUM 3.9 g/dL (3.5-5.0); BILIRUBIN, DIRECT 0.1 mg/dL (0.0-0.2); BILIRUBIN,INDIRECT 0.4 mg/dL (0.0-0.9); BILIRUBIN,TOTAL 0.5 mg/dL (0.2-2.0); CREATININE SERUM 1.2 mg/dL (0.6-1.4); GLOM FILT RATE Estimated 43.6 mL/min (>60); POTASSIUM 3.9 mmol/L (3.5-5.1); PROTEIN TOTAL SERUM 7.7 g/dL (6.0-8.3)
== END 2017-04-29 13:02 | disposition home or self-care (01) ==
LOC: CED 10:24
DX: N30.90 Cystitis, unspecified without hematuria (principal); I10 Essential (primary) hypertension; D64.9 Anemia, unspecified; Z88.0 Allergy status to penicillin; Z88.8 Allergy status to other drugs, medicaments and biological substances; Z79.899 Other long term (current) drug therapy
CPT/HCPCS: 36415; 80048; 80076; 81003; 83690; 85025; 87086; 96372; 99284; J0500